=== PATIENT | female | born 1995 | race Caucasian/White ===

== ENCOUNTER 2017-09-03 13:02 | Emergency (ER) | payer BC ==
[2017-09-03 13:26] VITALS: BP 119/67
--- NOTE | 2017-09-03 14:03 | UC ---
Throat Pain/Nasal Adam HPI - HPI Summary HPI Summary: Congestion, malaise, sore throat starting today. There was a 101 fever this morning as well. She is otherwise healthy. - History of Current Complaint Chief Complaint: UCGeneralIllness Stated Complaint: SWOLLEN THROAT GLANDS/FEVER Time Seen by Provider: 09/03/17 13:24 Hx Obtained From: Patient Hx Last Menstrual Period: 09/01/17 Onset/Duration: Gradual Onset, Lasting Hours Severity: Moderate Pain Intensity: 5 Cough: None Associated Signs & Symptoms: Positive: Dysphagia, Fever. Negative: FB Sensation , Drooling, Wheezing, Hoarseness, Sinus Discomfort, Nasal Discharge, Vomiting, Rash - Allergies/Home Medications Allergies/Adverse Reactions: Allergies Allergy/AdvReac Type Severity Reaction Status Date / Time No Known Allergies Allergy Verified 09/03/17 13:23 PMH/Surg Hx/FS Hx/Imm Hx Previously Healthy: Yes - Surgical History Surgical History: None - Family History Known Family History: Positive: Hypertension - Social History Occupation: Student Alcohol Use: None Substance Use Type: None Smoking Status (MU): Never Smoked Tobacco - Immunization History Most Recent Influenza Vaccination: DEC 2015 Review of Systems Constitutional: Fever ENT: Sore Throat All Other Systems Reviewed And Are Negative: Yes Physical Exam Triage Information Reviewed: Yes Appearance: Well-Appearing, No Pain Distress, Well-Nourished Vital Signs: Initial Vital Signs Temp 98.1 F 09/03/17 13:21 Pulse 112 09/03/17 13:21 Resp 16 09/03/17 13:21 BP 119/67 09/03/17 13:21 Pulse Ox 98 09/03/17 13:21 Vital Signs Reviewed: Yes Eyes: Positive: Conjunctiva Clear. Negative: Conjunctiva Inflamed ENT: Positive: Pharyngeal erythema, TMs normal, Uvula midline. Negative: TM bulging, TM dull, TM red, Tonsillar swelling, Tonsillar exudate, Trismus, Muffled voice, Hoarse voice, Dental tenderness, Sinus tenderness Neck: Positive: Supple, Nontender, No Lymphadenopathy. Negative: Nuchal Rigidity Respiratory: Positive: Lungs clear, Normal breath sounds, No respiratory distress, No accessory muscle use. Negative: Respiratory distress, Decreased breath sounds, Accessory muscle use, Crackles, Rhonchi, Stridor, Wheezing Cardiovascular: Positive: No Murmur, Pulses Normal Abdomen Description: Positive: No Organomegaly, Soft. Negative: Distended, Guarding Musculoskeletal: Positive: Strength Intact, ROM Intact, No Edema Neurological: Positive: Alert, Muscle Tone Normal. Negative: Fatigued Psychological: Positive: Age Appropriate Behavior Skin: Negative: rashes Throat Pain/Nasal Course/Dx - Course Assessment/Plan: she has some symptoms of mono. Spleen is not palpable. We will test for mono and if positive she is aware that she needs to sit out until cleared by [facility]. - Differential Dx/Diagnosis Provider Diagnoses: sore throat. possible mono Discharge - Sign-Out/Discharge Documenting (check all that apply): Discharge/Admit/Transfer - Discharge Plan Condition: Good Disposition: HOME Patient Education Materials: Pharyngitis (ED) Referrals: Non Staff,Doctor [Primary Care Provider] - Additional Instructions: If mono spot if positive, then you will need to take some time off from lacrosse. - Billing Disposition and Condition Condition: GOOD Disposition: HOME
== END 2017-09-03 14:25 | disposition home or self-care (01) ==
LOC: UCCORT 13:02
DX: J02.9 Acute pharyngitis, unspecified (principal)
CPT/HCPCS: 36415; 86308; 87651; 99211; G0463